=== PATIENT | male | born 1965 | race African-American/Black ===

== ENCOUNTER 2024-09-26 12:37 | Inpatient (IN) | payer OTHER ==
[2024-09-26 13:27] VITALS: BMI 22.6
[2024-09-26] MEDS ORDERED: NICOTINE POLACRILEX 2 MG LOZENGE BC PRN (13:33)
[2024-09-26] MEDS ORDERED: ACETAMINOPHEN 325 MG TABLET (FP) PO PRN (13:33)
[2024-09-26] MEDS ORDERED: BENZONATATE 200 MG CAPSULE PO PRN (13:33)
[2024-09-26] MEDS ORDERED: MAGNESIUM HYDROX 2400MG/30ML ORAL SUSPENSION 30 ML CUP PO PRN (13:33)
[2024-09-26] MEDS ORDERED: IBUPROFEN 400 MG TABLET (FP) PO PRN (13:33)
[2024-09-26] MEDS ORDERED: guaiFENesin 600 MG TABLET.ER (FP) PO PRN (13:33)
[2024-09-26] MEDS ORDERED: MAG HYDROX/AL HYDROX/SIMETH 30 ML UNIT-DOSE CUP PO PRN (13:33)
[2024-09-26] MEDS ORDERED: LOPERAMIDE HCL 2 MG CAPSULE PO PRN (13:33)
[2024-09-26] MEDS ORDERED: BENZOCAINE/MENTHOL (CHLORASEPTIC ) LOZENGE MM PRN (13:33)
[2024-09-26] MEDS ORDERED: POLYETHYLENE GLYCOL (HEALTHYLAX) 3350 17 GM PACKET PO PRN (13:33)
[2024-09-26] MEDS ORDERED: NALOXONE (NARCAN) HCL 4 MG/0.1 ML SPRAY NS PRN (13:33)
[2024-09-26] MEDS: propRANOLol HCL 10 MG TABLET PO ONE (15:45)
[2024-09-26] MEDS: TUBERCULIN PPD 5 TU/0.1ML SYRINGE (IN PATIENT USE ONLY) ID ONE (17:24)
[2024-09-26] MEDS: THIAMINE 100 MG TABLET PO SCH (21:15)
[2024-09-26] MEDS: MELATONIN 5 MG TABLETS PO SCH (21:15)
[2024-09-27] MEDS: TAMSULOSIN HCL 0.4 MG CAP PO SCH (08:14)
[2024-09-27] MEDS: amLODIPine BESYLATE 10 MG TABLET (FP) PO SCH (09:17)
[2024-09-27] MEDS: PRENATAL VITAMINS W/ FOLIC ACID TABLET (FP) PO SCH (09:17)
[2024-09-27] MEDS: PANTOPRAZOLE 20 MG TABLET PO SCH (09:17)
[2024-09-27] MEDS: HYDROCHLOROTHIAZIDE 25 MG TABLET (FP) PO SCH (09:17)
[2024-09-27 11:00] LABS: HEMATOCRIT 40.5 % (40.1-51.0); HEMOGLOBIN 12.9 g/dL (13.7-17.5); MCHC 31.9 g/dl (32.3-36.5); MEAN CELL VOLUME 84.9 fl (79.0-92.2); MEAN PLT VOLUME 9.9 fl (9.4-12.4); PLATELET COUNT 332 x10^3/uL (163-337); RDW 16.9 % (12.2-16.1)
[2024-09-27 11:05] LABS: CHLORIDE 106 mmol/L (98-107); POTASSIUM 4.6 mmol/L (3.5-5.1); SODIUM 140 mmol/L (136-145)
[2024-09-27 11:10] LABS: GLUCOSE,RANDOM 98 mg/dL (74-106)
[2024-09-27 11:11] LABS: ALBUMIN 3.4 g/dl (3.4-5.0); CALCIUM 9.2 mg/dL (8.5-10.1)
[2024-09-27 11:12] LABS: ANION GAP 6 mmol/L (4-13); CO2 28 mmol/L (21-32)
[2024-09-27 11:13] LABS: SGPT/ALT 19 U/L (13-61)
[2024-09-27 11:14] LABS: SGOT/AST 21 U/L (15-37)
[2024-09-27 11:15] LABS: BILIRUBIN,TOTAL 0.8 mg/dL (0.2-1); TOT PROT 6.7 g/dl (6.4-8.2)
[2024-09-27 11:16] LABS: ALK PHOS 123 U/L (45-117)
[2024-09-27 12:11] LABS: SYPHILIS W/ RPR CONF NON-REACTIVE (NONREACTIVE)
[2024-09-27 12:40] LABS: HCV DIAGNOSTIC IN-HOUSE W/RFLX NON-REACTIVE (NONREACTIVE)
[2024-09-27] MEDS: QUEtiapine FUMARATE 100 MG TABLET (FP) PO SCH (21:02)
[2024-09-28 11:36] LABS: EPI CELLS 8 /uL (0-25.1); HYALINE CASTS 1 /uL (0-3.1); PH,URINE 6.5 (5.0-8.0); URINE APPEARANCE CLEAR; URINE BACTERIA 6 /uL (0-1359); URINE BILIRUBIN NEGATIVE (NEGATIVE); URINE COLOR YELLOW; URINE GLUCOSE (UA) NEGATIVE (NEGATIVE); URINE KETONE NEGATIVE (NEGATIVE); URINE LEUK ESTERASE TRACE (NEGATIVE); URINE NITRITE NEGATIVE (NEGATIVE); URINE PROTEIN NEGATIVE (NEGATIVE); URINE RBC 6 /uL (0-23.9); URINE UROBILINOGEN 0.2 mg/dL (0.2-1.0); URINE WBC 40 /uL (0-25.8)
[2024-10-02] MEDS: IBUPROFEN 600 MG TABLET (FP) PO PRN (10:40)
[2024-10-04] MEDS: MELATONIN 5 MG TABLETS PO SCH (21:32)
[2024-10-04] MEDS: QUEtiapine FUMARATE 50 MG TABLET PO SCH (21:33)
[2024-10-07] MEDS: PRAZOSIN HCL 1 MG CAPSULE PO SCH (21:03)
[2024-10-09 05:29] VITALS: RESP 16
[2024-10-11 05:28] VITALS: TEMP 97.1
[2024-10-11 08:56] VITALS: BP 109/71; PULSE 100
== END 2024-10-11 09:26 | disposition home or self-care (01) | DRG 772 ==
LOC: YASAS 12:37 → Y3NR 14:04 → Y3W 09-27 10:04
PROVIDERS: ADMIT Psychiatry & Neurology Pain Medicine; ATTEND Psychiatry & Neurology Pain Medicine
PROC: HZ42ZZZ Group Counseling for Substance Abuse Treatment, Cognitive-Behavioral (ICD-10-PCS; principal; 2024-09-26)
DX: F14.20 Cocaine dependence, uncomplicated (principal); F10.20 Alcohol dependence, uncomplicated; F12.20 Cannabis dependence, uncomplicated; F17.210 Nicotine dependence, cigarettes, uncomplicated; F25.9 Schizoaffective disorder, unspecified; F19.282 Other psychoactive substance dependence with psychoactive substance-induced sleep disorder; F19.24 Other psychoactive substance dependence with psychoactive substance-induced mood disorder; D64.9 Anemia, unspecified; I10 Essential (primary) hypertension; N40.0 Benign prostatic hyperplasia without lower urinary tract symptoms
CPT/HCPCS: 36415; 80053; 80305; 80307; 81003; 85027; 86780; 86803; 87811; 93005; 93010